=== PATIENT | female | born 1960 | race Caucasian/White ===

== ENCOUNTER → 2017-02-19 | Outpatient (CLI) | payer BC | END | disposition home or self-care (01) | LOC: CFH 14:25 | PROVIDERS: ATTEND Nurse Practitioner Family | DX: N63 Unspecified lump in breast (principal) | CPT/HCPCS: 76641; G0204 ==

== ENCOUNTER → 2018-02-11 | Outpatient (CLI) | payer OTHER | LOC: RAD 13:50 | PROVIDERS: ATTEND Nurse Practitioner Family | DX: K76.0 Fatty (change of) liver, not elsewhere classified (principal); Z87.442 Personal history of urinary calculi | CPT/HCPCS: 76700; 76770 ==

== ENCOUNTER → 2018-06-21 | Outpatient (CLI) | payer OTHER | END | disposition home or self-care (01) | LOC: RAD 14:19 | PROVIDERS: ATTEND Orthopaedic Surgery | DX: M48.061 Spinal stenosis, lumbar region without neurogenic claudication (principal) | CPT/HCPCS: 72110 ==

== ENCOUNTER 2019-12-07 16:46 | Emergency (ER) | payer OTHER ==
[~2019-12-07] VITALS: Ht 175.3 cm; Wt 103.3 kg
[2019-12-07] MEDS ORDERED: ASPIRIN 81 MG TABLET CHEW ONE (17:08)
[2019-12-07] MEDS ORDERED: ASPIRIN 81 MG TABLET CHEW PO ONE (17:30)
[2019-12-07 17:48] LABS: BASOPHILS # (AUTO) 0.07 x10^3/uL (0-0.1); BASOPHILS % (AUTO) 1 % (0-1); EOSINOPHILS # (AUTO) 0.18 x10^3/uL (0-0.4); EOSINOPHILS % (AUTO) 2 % (1-7); LYMPHOCYTES # (AUTO) 3.11 x10^3/uL (1-3.4); LYMPHOCYTES % (AUTO) 34 % (22-44); MD NO; MEAN CORPUSCULAR HEMOGLOBIN 29.3 pg (27.0-34.8); MEAN CORPUSCULAR VOLUME 88.9 fL (80-100); MEAN PLATELET VOLUME 7.9 fL (7.4-10.4); MONOCYTES # (AUTO) 0.53 x10^3/uL (0.2-0.8); MONOCYTES % (AUTO) 6 % (2-9); NEUTROPHILS # (AUTO) 5.19 x10^3/uL (1.8-6.8); NEUTROPHILS % (AUTO) 57 % (42-75); PLATELET COUNT 191 x10^3/uL (130-400); RED BLOOD COUNT 4.69 x10^6/uL (3.82-5.3); RED CELL DISTRIBUTION WIDTH 13.8 % (9.6-15.2)
[2019-12-07] MEDS ORDERED: LEVO25TA2 PO (17:55)
[2019-12-07] MEDS ORDERED: CARV3.1212 PO (17:55)
[2019-12-07] MEDS ORDERED: ESTR0.5T PO (17:55)
[2019-12-07] MEDS ORDERED: GABA300C10 PO (17:55)
[2019-12-07] MEDS ORDERED: LISI-167 PO (17:55)
--- NOTE | 2019-12-07 17:56 | NUR ---
TASK RN NOTE: PT AMBULATES WELL INDEPENDENTLY BACK TO ED ROOM. CHANGED INTO GOWN. PLACED ON MONITOR. MED RECONCILIATION COMPLETED. HOB TO LEVEL OF COMFORT. BLANKET IN PLACE. SIDE RAILS UP, CALL LIGHT IN REACH. FRIEND AT BEDSIDE. AWAITING DAMIEN BAUMAN.
[2019-12-07 18:00] LABS: ALBUMIN 3.9 g/dL (3.4-5.0); ANION GAP 8 mmol/L (5-15); CALCIUM 8.6 mg/dL (8.5-10.1); CHLORIDE 106 mmol/L (98-107); CREATININE 0.89 mg/dL (0.55-1.02)
[2019-12-07 18:03] LABS: TROPONIN I < 0.015 ng/mL (0.000-0.045)
[2019-12-07 18:21] LABS: ALBUMIN 3.9 g/dL (3.4-5.0)
[2019-12-07 18:25] LABS: ALANINE AMINOTRANSFERASE 42 U/L (12-78); ALKALINE PHOSPHATASE 58 U/L (45-117); BILIRUBIN, DIRECT < 0.1 mg/dL (0.1-0.2); BILIRUBIN,INDIRECT 0.2 mg/dL (0.0-2.0); BILIRUBIN,TOTAL 0.3 mg/dL (0.2-1.0); TOTAL PROTEIN 7.8 g/dL (6.4-8.2)
[2019-12-07] MEDS ORDERED: MAALOX/HYOSCYAMINE/LIDOCAINE 45 ML BTL PO ONE (18:30)
[2019-12-07] MEDS ORDERED: MAALOX/HYOSCYAMINE/LIDOCAINE 45 ML BTL ONE (18:39)
--- NOTE | 2019-12-07 18:44 | NUR ---
TASK RN NOTE: PT SITTING RECLINED IN BED TALKING WITH FRIEND. PT TOLERATED GI COCKTAIL WELL. NAD NOTED AT THIS TIME. RESPIRATIONS EVEN AND UNLABORED ON RA.
--- NOTE | 2019-12-07 19:02 | NUR ---
TASK RN NOTE: PT REPORTS SOME RELIEF WITH GI COCKTAIL. "IT'S JUST SORE NOW" MOTIONING TO RUQ.
[2019-12-07] MEDS ORDERED: OMNIPAQUE 350 MG/ML, 100ML BOTTLE ONE (20:31)
[2019-12-07 21:19] VITALS: BP 115/65
== END 2019-12-07 21:22 | disposition home or self-care (01) ==
LOC: ED 17:57
DX: R10.13 Epigastric pain (principal); R11.0 Nausea; I10 Essential (primary) hypertension
CPT/HCPCS: 36415; 71045; 74177; 80048; 80076; 82040; 83690; 84484; 85025; 93005; 99284; Q9967

== ENCOUNTER → 2020-09-07 | Outpatient (CLI) | payer OTHER ==
[~2020-09-07] MED LIST: CARV3.1212 PO; ESTR0.5T PO; GABA300C10 PO; LEVO25TA2 PO; LISI-167 PO; REGADENOSON 0.4 MG/5 ML SYRINGE ONE
== END | disposition home or self-care (01) ==
LOC: CFH 06:58
PROVIDERS: ATTEND Internal Medicine Cardiovascular Disease
DX: I11.9 Hypertensive heart disease without heart failure (principal); I42.9 Cardiomyopathy, unspecified
CPT/HCPCS: 78452; 93017; 93306; A9502; J2785